=== PATIENT | female | born 1985 | race Caucasian/White ===

== ENCOUNTER 2025-01-03 12:32 | Outpatient (CLI) | payer MEDICAID, SELFPAY ==
[2025-01-03 13:17] LABS: Hematocrit 42.5 % (37.0-47.0); Hemoglobin 14.0 g/dL (12.2-16.2); Immature Granulocytes % 0.2 %; Mean Corpuscular HGB Conc 32.9 g/dL (31.8-35.4); Mean Corpuscular Hemoglobin 28.1 pg (27.0-31.2); Mean Corpuscular Volume 85.2 fl (81-99); Nucleated Red Blood Cells % 0 %; Platelet Count 140 K/mm3 (142-424); Red Blood Count 4.99 M/mm3 (4.20-5.40); Red Cell Distribution Width-SD 39.3 fL; White Blood Count 8.6 K/mm3 (4.8-10.8)
[2025-01-03 13:44] LABS: Iron 160 ug/dL (37-170)
[2025-01-03 13:53] LABS: Total Iron Binding Capacity 273 ug/dL (265-497)
[2025-01-03 14:19] LABS: Ferritin 25.3 ng/ml (6.24-137)
== END 2025-01-03 23:59 | disposition home or self-care (01) ==
LOC: LAB 12:33
PROVIDERS: PCP Nurse Practitioner; Visit Provider Internal Medicine Medical Oncology
DX: D64.9 Anemia, unspecified (principal)
CPT/HCPCS: 36415; 82728; 83540; 83550; 85025

== ENCOUNTER 2025-01-12 15:14 | Outpatient (CLI) | payer MEDICAID, SELFPAY | END 2025-01-12 23:59 | disposition home or self-care (01) | LOC: LAB 15:15 | PROVIDERS: PCP Nurse Practitioner; Visit Provider Internal Medicine Medical Oncology | DX: D50.9 Iron deficiency anemia, unspecified (principal); Z13.89 Encounter for screening for other disorder | CPT/HCPCS: 36415; 85240; 85245 ==

== ENCOUNTER 2025-04-11 08:28 | Outpatient (CLI) | payer BC, SELFPAY ==
--- NOTE | 2025-04-11 08:30 | US_ITS ---
FINAL REPORT TECHNIQUE: Sonographic images of the right upper quadrant were obtained. CLINICAL HISTORY: NAUSEA RUQ PAIN DIARRHEA COMPARISON: None FINDINGS: PANCREAS: Unremarkable. LIVER: Homogeneous. No focal hepatic lesion. No intrahepatic biliary ductal dilatation. The portal vein is patent with normal directional flow. GALLBLADDER: The gallbladder contains sludge, however no gallstones are visualized. The gallbladder wall is borderline in size, measuring 4 to 5 mm in thickness. COMMON DUCT: 4 mm. Normal for age. RIGHT KIDNEY: The right kidney measures 10.2 cm. There is no hydronephrosis, mass, or stone. FREE FLUID: None. IMPRESSION: Gallbladder sludge is present, without focal gallstones seen. The gallbladder wall is borderline in size, measuring between 4 and 5 mm in thickness. Reviewed, Interpreted and Dictated by Candy Corral MD Transcribed by Elisa Salcedo Authenticated and [facility]
== END 2025-04-11 23:59 | disposition home or self-care (01) ==
LOC: RAD 08:28
PROVIDERS: PCP Nurse Practitioner; Visit Provider Nurse Practitioner
DX: K82.8 Other specified diseases of gallbladder (principal)
CPT/HCPCS: 76705

== ENCOUNTER 2025-04-24 10:04 | Outpatient (CLI) | payer BC, SELFPAY ==
--- NOTE | 2025-04-24 10:10 | NM_ITS ---
FINAL REPORT CLINICAL HISTORY: GALLBLADDER SLUDGE 10:15AM 8.78MCI TC Choletec 11:30AM 1.5MCG CCK inj. into rt ant no pain with cck COMPARISON: None FINDINGS: Sequential anterior projection images of the abdomen were obtained after the intravenous injection of 8.79 mCi technetium 99m Choletec. There is normal uptake of radiotracer by the liver. The bile ducts are visualized by 5 minutes. Gallbladder activity is seen by 10 minutes. Bowel activity is noted by 25 minutes. After 1 hour, 1.5 ?g of CCK was injected intravenously for calculation of gallbladder ejection fraction. The gallbladder ejection fraction is 80%, which is within normal limits. IMPRESSION: No evidence of cystic duct or bile duct obstruction. Normal gallbladder ejection fraction of 80%. Reviewed, Interpreted and Dictated by Aung Cortes MD Transcribed by Elisa Salcedo Authenticated and [facility]
[2025-04-24] MEDS: SINCALIDE 1.5 MCG in 0.9 % SODIUM CHLORIDE 50 ML 100 MCG IV (11:20)
[2025-04-24] MEDS: SODIUM CHLORIDE 0.9% 10ML SYR (RAD ONLY) 10 ML IV (11:21)
[2025-04-24] MEDS: ISOTOPE CHOLETECH;1 DOSE (UP TO 15 MCI) IV (11:21)
== END 2025-04-24 23:59 | disposition home or self-care (01) ==
LOC: RAD 10:05
PROVIDERS: PCP Nurse Practitioner; Visit Provider Nurse Practitioner
DX: K82.8 Other specified diseases of gallbladder (principal)
CPT/HCPCS: 78227; A9537; J2805

== ENCOUNTER 2025-05-15 08:19 | Outpatient (CLI) | payer BC, SELFPAY ==
--- NOTE | 2025-05-15 08:22 | CT_ITS ---
FINAL REPORT TECHNIQUE: Oral and IV contrast enhanced exam This study was performed with techniques to keep radiation doses as low as reasonably achievable, (ALARA). Individualized dose reduction techniques using automated exposure control or adjustment of mA and/or kV according to the patient''s size were employed. CLINICAL HISTORY: RUQ PAIN AND DIARRHEA FINDINGS: Abdomen: Lung bases are clear. The gallbladder is unremarkable. There is no evidence of biliary obstruction. Liver has an unremarkable CT appearance. The spleen, pancreas and adrenal glands are unremarkable. Kidneys show no mass or obstruction. No bowel obstruction or fluid collection is seen. Pelvis: There are no findings of appendicitis.. Pelvic bowel loops are unremarkable. Patient is status post hysterectomy. No fluid collection or adenopathy is seen. IMPRESSION: Unremarkable CT evaluation of the abdomen and pelvis Reviewed, Interpreted and Dictated by Aung Cortes MD Transcribed by Kate Zurita Authenticated and [facility]
[2025-05-15] MEDS: IOPAMIDOL-370 (76%);100ML BOTTLE 75 ML IV (08:36)
[2025-05-15] MEDS: SODIUM CHLORIDE 0.9% 10ML SYR (RAD ONLY) 10 ML IV (08:36)
== END 2025-05-15 23:59 | disposition home or self-care (01) ==
LOC: RAD 08:20
PROVIDERS: PCP Nurse Practitioner; Visit Provider Nurse Practitioner
DX: R10.11 Right upper quadrant pain (principal); R19.7 Diarrhea, unspecified
CPT/HCPCS: 74177; Q9967